=== PATIENT | male | born 1965 | race Caucasian/White ===

== ENCOUNTER → 2019-07-05 | Outpatient (CLI) | payer OTHER ==
[~2019-07-05] MED LIST: PROC10TA4 PO
--- NOTE | 2019-07-06 08:21 | RADONC ---
RADIATION ONCOLOGY CONSULTATION NOTE DATE: 07/05/2019 CHART NUMBER: [id number] DIAGNOSIS: Rectosigmoid cancer. STAGE: IIIC, pT3, pN2b, M0. ECOG PERFORMANCE STATUS: 0 CONSULTATION NOTE: Mr. 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 HISTORY OF PRESENT ILLNESS: The patient was in his usual state of health until last summer when he began developing some rectal bleeding and incomplete evacuation of his bowels. He was found to have a rectosigmoid lesion and on 03/31/2019 underwent a robotic laparoscopic low anterior resection, splenic flexure mobilization and radiopharmaceutical bowel vascular imaging. Pathology revealed a moderately differentiated invasive adenocarcinoma. The tumor invaded through the muscularis propria into the perirectal soft tissues. The distance from the radial margin was 0.3 cm. Lymphovascular invasion was present. Perineural invasion was not identified. It was noted that there were two other tumor deposits. A total of 20 regional lymph nodes were sampled of which 7 were positive for metastatic disease. The tumor was therefore staged as a IIIC, pT3, pN2b. A CT scan of the abdomen and pelvis was undertaken on 02/11/2019 and showed no evidence of metastatic disease. There was no lymphadenopathy and no evidence of lesions in the liver, spleen, pancreas, adrenal glands or kidneys. The patient was seen by Dr. Sudhir Carvajal MD and initiated systemic therapy with FOLFOX. He has completed four cycles of FOLFOX, the last of which was completed on June 30, 2019. He is now presenting to us for discussion of postoperative external beam radiation therapy in an attempt to increase the likelihood of achieving local control. PAST MEDICAL HISTORY: The patient's past medical history is noncontributory. He has been in generally good health. ALLERGIES: The patient is allergic to PENICILLIN. SOCIAL HISTORY: The patient does not smoke cigarettes nor abuse alcohol. FAMILY HISTORY: The patient's family history is positive for a father with prostate cancer. REVIEW OF SYSTEMS: The patient's review of systems is positive for some decreased energy, some loss of appetite and occasional dizziness and headaches. These have all developed since chemotherapy. His review of systems is otherwise noncontributory. He denies nausea, vomiting, fevers, chills, night sweats, diplopia, chest pain, rectal bleeding, shortness of breath, urinary or bowel difficulties at this time. He has no bone pain or neurological problems. PHYSICAL EXAMINATION: The patient is a well-developed, well-nourished male in no acute distress. HEENT exam is normocephalic, atraumatic. Extraocular movements are intact. There is no palpable cervical, supraclavicular, infraclavicular, axillary, or inguinal lymphadenopathy present. Lungs are clear to auscultation and percussion. Heart has a regular rate and rhythm. Abdomen is benign with no hepatosplenomegaly, masses, or tenderness. Rectal examination reveals a normal anal sphincter tone. His prostate is smooth with no evidence of nodularity. Skeletal examination reveals no tenderness to pressure or percussion of the bony skeleton. Extremities reveal no clubbing, cyanosis, or edema. Neurologic exam is grossly intact as is the remainder of the physical examination. ASSESSMENT: Clearly, the patient is a candidate for external beam radiation therapy and I have so informed him. I have discussed with the patient in detail the potential benefits as well as possible acute and chronic sequelae of external beam radiation therapy. We discussed the logistics of treatment planning, simulation and subsequent fractionated daily radiation treatments. We discussed the reasons behind offering treatment and even discussed the radiobiology of radiation and rectal cancer. I have scheduled the patient for the next available simulation slot and radiation will begin subsequently. He has not yet picked up his prescription for the Xeloda, which will be used throughout the course of treatment. Following radiation he has further cycles of FOLFOX which would be completed with Dr. Carvajal. Thank you for allowing us to participate in the care of this very pleasant gentleman. If I could be of any further assistance, or provide you any information, please free to contact me at anytime. As always, warm regards. cc: MD Bo Seo MD Samuel S Verbeck, [place]
== END ==
LOC: M ONCR 09:10
PROVIDERS: ATTEND Radiology Radiation Oncology
DX: C20 Malignant neoplasm of rectum (principal)

== ENCOUNTER 2019-07-12 10:31 | Outpatient (RCR) | payer OTHER ==
--- NOTE | 2019-07-13 08:11 | RADONC ---
RADIATION ONCOLOGY SIMULATION NOTE DATE: 07/12/2019 CHART NUMBER: [id number] Mr. Herring was taken to the CT scan for CT simulation of his rectal field. CT was accomplished without difficulty or discomfort. Radiation treatment planning is underway and radiation treatments will begin subsequently. An immobilization device was created and will be used throughout the course of treatment. It was created without difficulty or discomfort. I was physically present throughout the course of CT simulation.
== END 2019-07-22 ==
LOC: M ONCR 10:31
PROVIDERS: ATTEND Radiology Radiation Oncology
DX: C19 Malignant neoplasm of rectosigmoid junction (principal)

== ENCOUNTER 2019-08-15 08:43 | Outpatient (RCR) | payer OTHER ==
--- NOTE | 2019-07-25 12:38 | RADONC ---
RADIATION ONCOLOGY PROGRESS NOTE DATE: 07/25/2019 CHART NUMBER: [id number] Mr. Herring was taken to the linear accelerator today and underwent his first fraction of radiation to his rectum for a dose of 180 cGy. Radiation was tolerated without difficulty or discomfort. The patient's physical exam remains unchanged and clearly there was no evidence of radiation change of the skin. Mr. Herring tolerated his first fractions well. He has been given instructions once again on how to take his Xeloda. Radiation will continue as scheduled.
--- NOTE | 2019-08-01 10:51 | RADONC ---
RADIATION ONCOLOGY DATE OF SERVICE: 08/01/2019 CHART #: [id number] Mr. Herring with CA of the rectum status post radiation therapy, he has received a dose of 900 cGy up to date. He has no complaints other than occasional soreness around the surgical scar. He has no blood noted with the stool. He often experienced constipation. SYSTEMIC REVIEW Denies weight changes, loss of weight , fever or chills EXAMINATION: There are no radiation changes of skin. He is on Xeloda and weekly blood test is recommended, which is scheduled for tomorrow. PLAN: He tolerates treatment very well. The radiation therapy will continue as planned. I advised jessica valdes MTDD
--- NOTE | 2019-08-09 08:50 | RADONC ---
DATE OF SERVICE: 08/08/2019 Mr. Herring came with a diagnosis of cancer of the rectum. So far has received a dose of 1620 cGy along with chemotherapy. He has no new complaints. He said he is experiencing now a little bit of irrigation in the rectum and tenderness. I have discussed diet and advised to take a sitz bath. SYSTEMIC REVIEW: He said he is experiencing now irritation in the rectum and tenderness. I have discussed diet and advised to take a sitz bath. He denies any weight changes, fevers, chills, headaches, dizziness. EXAMINATION: Vital signs: Weight 194.2 pounds, blood pressure 129/83, pulse 73, temperature 97.5. There is no change of skin. ASSESSMENT AND PLAN: He tolerates treatment fairly well. Radiation therapy will continue as planned. MTDD
[2019-08-15] MEDS ORDERED: PERC10TA26 PO (15:25)
--- NOTE | 2019-08-16 09:01 | RADONC ---
RADIATION ONCOLOGY PROGRESS NOTE: DATE: 08/15/2019 CHART NUMBER: [id number] Mr. Herring is thus far at a dose of 2160 cGy to his rectum and was last treated on 08/11/2019. The patient has significant difficulty with pain in his perianal and rectal area upon defecation. He is also having some slight hemorrhoid type bleeding. At this time he has requested a treatment break and I agree. We discussed in detail the various options for care at this time. He is taking stool softeners. I have offered him pain medication if he needs it. In the meantime, he is also going to get some either Anusol or Preparation H to be applied. On physical exam is skin is in good condition with no evidence of moist or dry desquamation. The remainder is physical exam remains unchanged. Mr. Herring is on break at this time. We will re-evaluate him on and see whether or not he can reinitiate treatments or if we will delay till Thursday. Thus far is only had 1 day off from treatment.
== END 2019-08-20 ==
LOC: M ONCR 08:43
PROVIDERS: ATTEND Radiology Radiation Oncology
DX: C19 Malignant neoplasm of rectosigmoid junction (principal)

== ENCOUNTER 2019-09-16 15:24 | Outpatient (RCR) | payer OTHER ==
--- NOTE | 2019-08-23 11:59 | RADONC ---
RADIATION ONCOLOGY PROGRESS NOTE DATE: 08/22/2019 CHART NUMBER: [id number] PROGRESS NOTE: Mr. Herring is presently at a dose of 2340 cGy to his rectum and is returning today after a week's break secondary to rectal discomfort upon defecation. The patient reports that his bowel movements are less painful and things are improving, although not totally resolved. REVIEW OF SYSTEMS: The patient's review of systems is possible for rectal pain but is otherwise noncontributory. Denies nausea, vomiting, fevers, chills, night sweats, diplopia, headaches, anxiety or depression, anorexia, weight loss, visual disturbances, chest pain, urinary or bowel difficulties, bone pain, or neurological problems. PHYSICAL EXAMINATION: The patient's skin is in good condition with no evidence of moist or dry desquamation. The remainder of his physical exam remains unchanged. Mr. Herring is tolerating treatments with some discomfort and radiation will continue as scheduled.
--- NOTE | 2019-08-30 14:24 | RADONC ---
RADIATION ONCOLOGY PROGRESS NOTE: DATE: 08/30/2019 CHART NUMBER: [id number] Mr. Herring is presently at a dose of 3240 cGy to his rectum and overall is tolerating his treatments fairly well. He is complaining of rectal and anal discomfort especially with defecation. REVIEW OF SYSTEMS: The patient's review of systems is positive for anal discomfort but is otherwise noncontributory. He denies nausea, vomiting, fevers, chills, night sweats, diplopia, headaches, anxiety or depression, anorexia, weight loss, visual disturbances, chest pain, urinary or bowel difficulties, bone pain, or neurological problems. PHYSICAL EXAMINATION: The patient's skin shows erythema and tanning present but overall is in generally good condition with no evidence of moist desquamation. The remainder of his physical exam remains unchanged. Mr. Herring is tolerating treatments quite well and radiation will continue as scheduled.
--- NOTE | 2019-09-06 08:48 | RADONC ---
RADIATION ONCOLOGY PROGRESS NOTE DATE: 09/05/2019 CHART NUMBER: [id number] PROGRESS NOTE: Mr. Herring with a diagnosis of adenocarcinoma of the rectosigmoid area stage [id number], group stage III C, is currently receiving adjuvant postoperative radiotherapy and he has achieved a dose of approximately 2200 cGy of an anticipated 4500 centigrade. The patient claims that he has significant irritation with some frequency and dysuria. I asked him to the step in a room to be examined, however the patient refused examination today. He left the clinic without further evaluation. But it seems as though he is tolerating his radiotherapy reasonably well and he does not seem to have any significant untoward side effects, although our encounter was relatively brief. He will have approximately three more treatments to go to completion.
--- NOTE | 2019-09-13 09:36 | RADONC ---
RADIATION ONCOLOGY PROGRESS NOTE DATE: 09/12/2019 CHART NUMBER: [id number] PROGRESS NOTE: Mr. Herring is thus far at a dose of 4140 cGy to his rectum and was last treated on 09/06/2019. I put a call into this patient at home and he reports that he is once again having pain with defecation and difficulty going to the bathroom. I asked whether or not he wishes to resume treatments tomorrow or maybe the next day and he is unsure. He only has two fractions left. We will continue to follow this patient closely and encourage him to have his last two fractions of radiation. In the meantime, we will keep his chart open.
[~2019-09-16 15:24] MED LIST changes: +PERC10TA26 PO
--- NOTE | 2019-09-18 13:00 | RADONC ---
RADIATION ONCOLOGY TREATMENT SUMMARY DATE OF SERVICE: 09/18/2019 CHART NUMBER: [id number]. DIAGNOSIS: Rectosigmoid cancer. STAGE: IIIC, pT3p, pN2b, M0. ECOG PERFORMANCE STATUS: 0. TREATMENT SUMMARY: Mr. 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 We treated the patient to his rectum for a total dose of 4500 cGy delivered in 25 fractions of 180 cGy each over 53 elapsed days from 07/25/2019 through 09/16/2019. The patient's rectum was treated on the linear accelerator utilizing 3-D conformal technique with posterior left and right lateral joseph and a 15 MV photon beam. Overall, the patient took a rather extensive treatment break. He complained of pain upon defecation. I was able to talk him into coming in for the final two fractions, however, and he did complete therapy to the prescribed dose. The patient is scheduled to see me again in 1 month for further followup. He will also continue to be followed by his other physicians, as well. cc: MD Bo Seo MD Samuel S Verbeck, [place]
== END 2019-09-20 ==
LOC: M ONCR 15:24
PROVIDERS: ATTEND Radiology Radiation Oncology
DX: C19 Malignant neoplasm of rectosigmoid junction (principal)

== ENCOUNTER → 2020-02-25 | Outpatient (CLI) | payer OTHER | LOC: M LABSMTC 09:58 | PROVIDERS: ATTEND Orthopaedic Surgery | DX: Z11.59 Encounter for screening for other viral diseases (principal) ==